=== PATIENT | female | born 1975 | race Caucasian/White ===

== ENCOUNTER 2021-05-22 16:54 | Emergency (ER) | payer OTHER, SELFPAY ==
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
[2021-05-22 17:27] VITALS: BP 107/75; PULSE 95; RESP 20; TEMP 36.4; O2SAT 99
[2021-05-22 17:35] VITALS: BP 107/75; PULSE 95; RESP 20; TEMP 36.4; O2SAT 99
--- NOTE | 2021-05-22 17:51 | ED.LOWEXIN ---
HPI - Extremity Injury (Lower) General Chief Complaint: Extremity Injury, Lower Stated Complaint: Left Knee Pain Time Seen by Provider: 05/22/21 17:42 Source: patient and RN notes reviewed Mode of arrival: ambulatory Limitations: no limitations History of Present Illness HPI Narrative: Patient presents today complaining of 3-week history of left knee pain. Reports it started when her knee popped while going from a sitting to standing position. States the pain occasionally radiates to the thigh and down the anterior lower leg. She currently rates her pain 5/10 at rest, which increases to 8/10 with movement or weightbearing. She has been taking Tylenol and applying BenGay and a heating pad without relief. Review of a previous x-ray report from 2019 shows moderate tricompartmental osteoarthritis. MD complaint: knee injury Related Data Home Medications Medication Instructions Recorded Confirmed atorvastatin 10 mg PO DAILY 05/22/21 05/22/21 bupropion HCl 200 mg PO BID 05/22/21 05/22/21 calcium carbonate [Calcium 600] 600 mg PO BID 05/22/21 05/22/21 cholecalciferol (vitamin D3) 50 mcg PO DAILY 05/22/21 05/22/21 [Vitamin D3] cyanocobalamin (vitamin B-12) 500 mcg PO DAILY 05/22/21 05/22/21 famotidine [Pepcid] 20 mg PO DAILY 05/22/21 05/22/21 loratadine [Claritin] 10 mg PO DAILY 05/22/21 05/22/21 naltrexone 50 mg PO BID 05/22/21 05/22/21 Allergies Allergy/AdvReac Type Severity Reaction Status Date / Time No Known Allergies Allergy Verified 05/22/21 17:26 Review of Systems Review of Systems: Narrative: CONSTITUTIONAL: Denies body aches, fever, chills, or sweats. EYES: Denies visual changes, redness, or discharge. ENT: Denies rhinorrhea, congestion, sore throat, or otalgia. CARDIOVASCULAR: Denies chest pain, palpitations, or edema. RESPIRATORY: Denies cough or dyspnea. GASTROINTESTINAL: Denies abdominal pain, nausea, vomiting, or diarrhea. GENITOURINARY: Denies dysuria or hematuria. SKIN: Denies rash, itching, or wounds. MUSCULOSKELETAL: Denies back pain, or myalgia. + Left knee pain NEUROLOGIC: Denies headache, numbness, tingling, or weakness. PSYCH: Denies depression or anxiety. [facility] Past Medical History Medical History (Updated 05/22/21 @ 18:22 by Tova Marinelli, [facility], ) Anxiety Depression High cholesterol Osteoarthritis of both knees Surgical History Surgical History (Updated 05/22/21 @ 17:54 by Tova Marinelli, [facility], ) H/O gastric bypass Social History Social History Gender identity (if verbalized by the patient): Female Comments At time of signature, I have reviewed and agree with nursing past medical, surgical, social and family history unless otherwise noted. Please see nursing chart for further information. There is no relevant family history pertinent to the presenting complaint Exam Narrative: Exam Narrative: GENERAL: Well-appearing, well-nourished, and in no acute distress. HEAD: Normocephalic, atraumatic. EYES: EOMI. No redness or drainage. Conjunctivae normal. ENT: Mucous membranes pink and moist. NECK: Normal AROM. CHEST: No respiratory distress. EXTREMITIES: Left knee: Unable to assess edema due to patient's body habitus. Tenderness along the lateral joint line. Tenderness below the patella. No edema or ecchymosis noted. Full AROM with some increased pain. Distal sensation intact. Capillary refill normal. Pedal pulse normal. SKIN: Warm, dry, no rash. Capillary refill normal. Normal skin turgor. NEURO: No focal deficits. Alert and oriented x3. Gait steady. PSYCH: Normal affect. No signs of depression or anxiety. Course Vital Signs Vital signs: Vital Signs Temperature 97.5 F L 05/22/21 17:27 Pulse Rate 95 05/22/21 17:27 Respiratory Rate 20 05/22/21 17:27 Blood Pressure 107/75 05/22/21 17:27 Pulse Oximetry 99 05/22/21 17:27 Temperature 97.5 F L 05/22/21 17:35 Pulse Rate 95 05/22/21 17:35 Respiratory Rate 20 05/22/21 17:35 B
== END 2021-05-22 18:30 | disposition home or self-care (01) ==
PROVIDERS: Emergency Provider Nurse Practitioner; PCP Internal Medicine Infectious Disease
DX: M25.562 Pain in left knee (principal); M17.0 Bilateral primary osteoarthritis of knee; E78.00 Pure hypercholesterolemia, unspecified; Z98.84 Bariatric surgery status; F41.9 Anxiety disorder, unspecified; F32.9 Major depressive disorder, single episode, unspecified
CPT/HCPCS: 73564; 99213; G0463

== ENCOUNTER 2021-09-14 16:47 | Emergency (ER) | payer OTHER, SELFPAY ==
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
[2021-09-14 17:23] VITALS: BP 178/97; PULSE 72; RESP 16; TEMP 37; O2SAT 98
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
[2021-09-14 20:30] VITALS: BP 165/78; PULSE 72; RESP 18; O2SAT 99
== END 2021-09-14 20:30 | disposition home or self-care (01) ==
PROVIDERS: Emergency Provider Emergency Medicine; PCP Internal Medicine Infectious Disease
DX: S29.019A Strain of muscle and tendon of unspecified wall of thorax, initial encounter (principal); S16.1XXA Strain of muscle, fascia and tendon at neck level, initial encounter; S09.90XA Unspecified injury of head, initial encounter; E78.5 Hyperlipidemia, unspecified; M17.0 Bilateral primary osteoarthritis of knee; F41.9 Anxiety disorder, unspecified; F32.A Depression, unspecified; Z98.84 Bariatric surgery status; V49.40XA Driver injured in collision with unspecified motor vehicles in traffic accident, initial encounter
CPT/HCPCS: 70450; 72125; 72128; 99284